=== PATIENT | male | born 1985 | race Caucasian/White ===

== ENCOUNTER 2022-03-26 01:01 | Emergency (ER) | payer SELFPAY ==
[2022-03-26 01:11] VITALS: BP 146/77
== END 2022-03-26 03:22 | disposition left against medical advice (07) ==
LOC: ED 01:01
DX: Z53.21 Procedure and treatment not carried out due to patient leaving prior to being seen by health care provider (principal)

== ENCOUNTER 2023-11-04 13:45 | Outpatient (CLI) | payer SELFPAY ==
--- NOTE | 2023-11-04 18:36 | XRAY Report ---
PROCEDURE: Finger(s) LT INDICATIONS: LEFT 3RD FINGER FRACTURE TECHNIQUE: AP hand, 2 views of the third finger(s) acquired. COMPARISON: X-ray finger 10/24/2023 FINDINGS: Bones: Mildly displaced fracture within the midportion of the third proximal phalanx. Alignment is u nchanged compared to prior exam. No intra-articular extension. No definitive bridging osteophytes. Soft tissues: No suspicious soft tissue calcifications or masses. IMPRESSION: Stable alignment of mildly displaced third proximal phalanx fracture. Reviewed by: Sandra Ureña MD on 11/04/2023 6:35 PM PST Approved by: Sandra Ureña MD on 11/04/2023 6:35 PM PST Station ID: [id number]
== END 2023-11-04 23:59 | disposition home or self-care (01) ==
LOC: DI.WOS 13:45
PROVIDERS: ATTEND Orthopaedic Surgery
DX: S62.613D Displaced fracture of proximal phalanx of left middle finger, subsequent encounter for fracture with routine healing (principal)

== ENCOUNTER 2023-11-05 07:31 | Day surgery (SDC) | payer SELFPAY ==
[2023-11-05] MEDS ORDERED: ceFAZolin 2 GM VIAL ONE (07:44)
[2023-11-05] MEDS: LACTATED RINGERS 1,000 ML IV ONE (07:57)
[2023-11-05] MEDS: ACETAMINOPHEN 500 MG TABLET PO ONE (08:05)
[2023-11-05] MEDS: CELECOXIB 100 MG CAPSULE PO ONE (08:05)
[2023-11-05] MEDS ORDERED: PROPOFOL 200 MG/20 ML VIAL IVP ONE (08:09)
[2023-11-05] MEDS ORDERED: LIDOCAINE-PF 2% 10 ML AMP SUBQ ONE (08:10)
[2023-11-05] MEDS ORDERED: MIDAZOLAM 2 MG/2 ML VIAL ONE (08:10)
[2023-11-05] MEDS ORDERED: ONDANSETRON 4 MG/2 ML VIAL ONE (08:10)
[2023-11-05 08:16] VITALS: BP 135/89; O2SAT 98
--- NOTE | 2023-11-05 08:45 | ANESTHESIA ---
Pre-Anesthesia VS, & Labs - Diagnosis displaced fx prox phalanx L third finger - Procedure closed reduction perc pinning 3rd L finger Vital Signs: Temp Pulse Resp BP Pulse Ox O2 Flow Rate 36.8 C 107 H 16 135/89 H 98 11/05/23 07:58 11/05/23 07:58 11/05/23 07:58 11/05/23 07:58 11/05/23 07:58 Height: 6 ft 2 in Weight (kg): 91.6 kg Body Mass Index: 25.9 BMI Classification: Overweight - NPO Other (pt ate full breakfast (eggs) at 0600) Home Medications and Allergies No Known Home Medications 03/26/22 Allergies/Adverse Reactions: Allergies Allergy/AdvReac Type Severity Reaction Status Date / Time Opioids - Morphine Analogues AdvReac Unknown Verified 11/05/23 07:33 Anes History & Medical History - Anesthetic History Anesthesia Complications: reports: No previous complications Family history of Anesthesia Complications: Denies Family history of Malignant Hyperthermia: Denies - Medical History Cardiovascular: reports: None Pulmonary: reports: Asthma Gastrointestinal: reports: None Urinary: reports: None Musculoskeletal: reports: None Endocrine/Autoimmune: reports: None Skin: reports: None Smoking Status: Former smoker Psychosocial: reports: Other History of Cancer?: No - Surgical History General: reports: Colonoscopy Exam General: Alert, Oriented x3, Cooperative Dental: WNL Mouth Openin Fingerbreadth Neck Mobility: Normal Mallampati classification: II Thyromental Distance: greater than 6 cm Respiratory: Lungs clear Cardiovascular: Regular rate Plan Anesthesia Type: General (pt requests GA) Consent for Procedure(s) Verified and Reviewed: Yes Code Status: Attempt Resuscitation ASA classification: 2-Mild systemic disease Is this case an emergency?: No
[2023-11-05] MEDS ORDERED: ePHEDrine 50 MG/ML VIAL IVP PRN (09:37)
[2023-11-05] MEDS ORDERED: ATROPINE ABBOJECT 1 MG/10 ML SYRINGE IVP PRN (09:37)
[2023-11-05] MEDS ORDERED: NALOXONE 0.4 MG/ML VIAL IVP PRN (09:37)
[2023-11-05] MEDS ORDERED: ONDANSETRON 4 MG/2 ML VIAL IVP PRN (09:37)
[2023-11-05] MEDS ORDERED: METOCLOPRAMIDE 10 MG/2 ML VIAL IVP PRN (09:37)
[2023-11-05] MEDS ORDERED: fentaNYL 100 MCG/2 ML VIAL IVP PRN (09:37)
[2023-11-05] MEDS ORDERED: LACTATED RINGERS 1,000 ML IV SCH (10:00)
== END 2023-11-05 07:32 | disposition home or self-care (01) ==
LOC: SDS 07:31
PROVIDERS: ATTEND Orthopaedic Surgery
DX: S62.613A Displaced fracture of proximal phalanx of left middle finger, initial encounter for closed fracture (principal); Z53.8 Procedure and treatment not carried out for other reasons
CPT/HCPCS: A9270; J7120